=== PATIENT | female | born 1955 | race Caucasian/White ===

== ENCOUNTER 2018-10-18 08:33 | Observation (INO) | payer OTHER, SELFPAY ==
[2018-10-18] VITALS (19 sets, daily range): BP systolic 98–147; BP diastolic 70–82; PULSE 28–92; RESP 12–22; TEMP 36.4–36.7; O2SAT 95–100; BMI 22.3; BMI 22.9; BMI 23.0
--- NOTE | 2018-10-18 08:33 | EKG12_ITS ---
Test Reason : REPEAT Blood Pressure : / mmHG Vent. Rate : 082 BPM Atrial Rate : 082 BPM P-R Int : 156 ms QRS Dur : 086 ms QT Int : 406 ms P-R-T Axes : 076 -63 141 degrees QTc Int : 474 ms Normal sinus rhythm Left anterior fascicular block ST & T wave abnormality, consider inferolateral ischemia Prolonged QT Abnormal ECG Confirmed by EVY VERDUGO MD ([id number]), art editor STACI CORTEZ ([id number] on 10/23/2018 4:23:38 PM Referred By: TRISTAN Confirmed By:EVY VERDUGO MD
--- NOTE | 2018-10-18 08:35 | ED.VIS.GEN ---
History of Present Illness Chief Complaint: Chest Pain Informant: Patient Onset: Today - Awakened from sleep at 0100 Context: Sudden Onset Timing: Intermittent Quality: Tight pressure Location: Midsternal Current Severity: Moderate Maximum Severity: Severe Worsened by: Nothing Relieved by: Nothing Associated Symptoms: Diaphoresis with one episode, shortness of breath and nausea Narrative: Patient is a 63-year-old woman with no significant past medical history and no past surgical history who presents because she was wake from sleep with mid sternal chest tightness and pressure without radiation associated with nausea and dyspnea. One episode was associated with diaphoresis. She does not take aspirin on a routine basis. She denies black, maroon or blood in her stool. She denies food intolerance. There is no family history of coronary disease or cholelithiasis. She has no history of hiatal hernia or reflux. There is no history of PE or DVT and she has no risk factors. Denies leg pain, swelling discoloration. Prior similar symptoms: No Recent Illness/Hospitalization: No - Past Medical History (1) No significant past medical history Status: Acute Past Medical History - Allergies and Home Meds Allergies/Adverse Reactions: Allergies No Known Allergies Allergy (Verified 10/18/18 08:40) Primary Care Physician: Sunni Allen MD [STAFF PHYSICIAN] - Past Medical History: None Surgical History: no surgical history Lives: Spouse/ Significant Other Smoking Status: Never smoker Alcohol: None - Complaint Review of Systems General: Denies: Chills, Fever, Sweats, Weight loss Eyes: Denies: Visual changes - bilaterally, Blurred Vision - bilaterally, Diplopia ENT: Denies: Rhinorrhea, Sore throat Cardiovascular: Reports: Chest pain Respiratory: Reports: Dyspnea. Denies: Cough, Dyspnea on exertion, Orthopnea, Paroxysmal nocturnal dyspnea Gastrointestinal: Reports: Abdominal pain - Patient reports discomfort in the epigastric area as well., Nausea. Denies: Vomiting, Diarrhea, Constipation, Melena, Hematochezia Genitourinary: Denies: Dysuria, Hematuria, Frequency Musculoskeletal: Denies: Myalgias, Arthralgias, Neck pain, Back pain, Swelling, Extremity Pain, -, - Skin: Denies: Rash, Wounds Neurological: Denies: Headache, Weakness, Numbness Hematologic: Denies: Easy bruising, Easy bleeding - She reports epigastric pain as well. Allergy: Denies: Uticaria Physical Exam Inital Vital Signs reviewed: Yes General: Well nourished, Well developed, - - Patient does not appear comfortable. Respiratory rate is slightly increased. Head: Normocephalic, Atraumatic Eyes: Perrl, EOMI. Negative for: Pale conjunctiva, Scleral icterus, - ENT: Moist mucous membranes, No rhinorrhea Neck: Supple, Nontender, No lymphadenopathy, No JVD, - Cardiovascular: Regular rate, Regular rhythm, No murmurs, Normal S1, Normal S2 Respiratory: No distress, CTA bilaterally, Chest nontender Abdomen: Soft, Nondistended, Normal bowel sounds, No masses, Tender, Hypoactive bowel sounds. Negative for: Ventral hernia, Umbilical hernia, Rovsig's sign, King's sign Rectal: Deferred Back: Nontender, Normal Inspection Extremities: Nontender, No edema, - - There is no asymmetry, swelling, discoloration, leg vein distention, palpable cords or tenderness along the distribution of the deep venous system. Skin: Normal color, No rash. Negative for: Cyanosis, Jaundice Neurological: Alert, Oriented x3, Cranial nerves II-XII grossly intact, Normal Strength, Normal Sensation, Normal Gait Psychological: Normal affect, Normal Mood Diagnostic/Tx/Re-eval Chest X-Ray - ED: 1 View, Read by ED Physician, Normal, Heart, Lungs, Mediastinum, Bony Structures, No Acute Disease, - - There are no prior x-rays for comparison. 10/18/18 08:45 Chest 1 View (Portable) [RAD] Stat Laboratory Results 10/18/18 10/18/18 08:46 08:46 WBC 7.0 RBC 5.10 Hgb 15.5 H Hct 45.1 MCV 88.4 MCH 30.4 MCHC 34.4 RDW 12.7 RDW Differential 41.0 Plt Count 248 MPV 8.7 Immature Gran % (Auto) 0.300 Neut % (Auto) 88.2 H Lymph % (Auto) 9.4 L [place] % (Auto) 2.1 Eos % (Auto) 0.0 Baso % (Auto) 0.0 Absolute Neuts (auto) 6.2 Absolute Lymphs (auto) 0.66 L Total Counted Not Reportable Sodium 136 Potassium 3.8 Chloride 103 Carbon Dioxide 28.0 Anion Gap 5 BUN 22 H Creatinine 0.74 Estim Creat Clear Calc 71.84 Est GFR (MDRD) Af Amer 103 Est GFR (MDRD) Non-Af 85 BUN/Creatinine Ratio 29.9 H Glucose 142 H Calcium 9.2 Troponin I < 0.015 - Rhythm Strip Rhythm Strip: Sinus Rhythm Rate: 74 Ectopy: None - EKG Initial EKG Interpretation: Sinus Rhythm - Ventricular rate 78. [place] interval normal. QS duration 88 ms. QT interval is normal. [place] to left and there is evidence of a left anterior fascicular block. There is artifact noted in V4. Follow-up EKG Interpretation: Sinus Rhythm - Ventricular rate is 82. There is a left anterior fascicular block. There are new lateral ischemic changes V4 through V6. - Medical Decision Making Patient presents with midsternal chest discomfort without radiation and associated symptoms. Patient has a positive Burroughs sign. She does not appear comfortable. Need to evaluate for cardiac versus noncardiac etiology. EKG appropriate blood work was ordered. Because she describes as pressure sensation with diaphoresis she will receive aspirin and sublingual nitro since she is presently having tightness/pressure in her chest. Patient complaining of significant nausea. 4 mg of Zofran was ordered. I was asked to see patient because she does not look well. She is pale. Monitor reveals bradycardia. There is no sniffing a change in blood pressure. There is a decrease from 140-130 systolic. Obtain a repeat EKG. There are ST segment changes no on the monitor which may or may not indicate ischemia. Repeat EKG reveals a sinus rhythm rate of 82 with left anterior fascicular block. T waves are flipped and lead V4 through V6 which is new. Dr. Pittman who is on-call for cardiology was paged. Case was discussed Dr. Lopez. He was informed of EKG changes. He will see patient in the ER. She is pain-free he requested nitro drip, 180 mg of Brilinta and 4000 units of heparin. Troponin is pending. Hospitalist has been paged for admission. She will require admission to ICU. - Critical Care Time Critical care time (excluding procedures): 30-74 minutes, Discussing w/Patient &/or Family/Inside Sales Administrator, Discussing w/Consultants, Arranging Admission or Transfer ED Disposition - Plan for ED Patient: Disposition: Acute Care Hospital [facility] Diagnosis: Angina pectoris, unstable Referrals: Sunni Allen MD [STAFF PHYSICIAN] -
--- NOTE | 2018-10-18 08:39 | ED.DCSUM_ITS ---
History of Present Illness Chief Complaint: Chest Pain Informant: Patient Onset: Today - Awakened from sleep at 0100 Context: Sudden Onset Timing: Intermittent Quality: Tight pressure Location: Midsternal Current Severity: Moderate Maximum Severity: Severe Worsened by: Nothing Relieved by: Nothing Associated Symptoms: Diaphoresis with one episode, shortness of breath and nausea Narrative: Patient is a 63-year-old woman with no significant past medical history and no past surgical history who presents because she was wake from sleep with mid sternal chest tightness and pressure without radiation associated with nausea and dyspnea. One episode was associated with diaphoresis. She does not take aspirin on a routine basis. She denies black, maroon or blood in her stool. She denies food intolerance. There is no family history of coronary disease or cholelithiasis. She has no history of hiatal hernia or reflux. There is no history of PE or DVT and she has no risk factors. Denies leg pain, swelling discoloration. Prior similar symptoms: No Recent Illness/Hospitalization: No - Past Medical History (1) No significant past medical history Status: Acute Past Medical History - Allergies and Home Meds Allergies/Adverse Reactions: Allergies No Known Allergies Allergy (Verified 10/18/18 08:40) Primary Care Physician: Sunni Allen MD [STAFF PHYSICIAN] - Past Medical History: None Surgical History: no surgical history Lives: Spouse/ Significant Other Smoking Status: Never smoker Alcohol: None - Complaint Review of Systems General: Denies: Chills, Fever, Sweats, Weight loss Eyes: Denies: Visual changes - bilaterally, Blurred Vision - bilaterally, Diplopia ENT: Denies: Rhinorrhea, Sore throat Cardiovascular: Reports: Chest pain Respiratory: Reports: Dyspnea. Denies: Cough, Dyspnea on exertion, Orthopnea, Paroxysmal nocturnal dyspnea Gastrointestinal: Reports: Abdominal pain - Patient reports discomfort in the epigastric area as well., Nausea. Denies: Vomiting, Diarrhea, Constipation, Melena, Hematochezia Genitourinary: Denies: Dysuria, Hematuria, Frequency Musculoskeletal: Denies: Myalgias, Arthralgias, Neck pain, Back pain, Swelling, Extremity Pain, -, - Skin: Denies: Rash, Wounds Neurological: Denies: Headache, Weakness, Numbness Hematologic: Denies: Easy bruising, Easy bleeding - She reports epigastric pain as well. Allergy: Denies: Uticaria Physical Exam Inital Vital Signs reviewed: Yes General: Well nourished, Well developed, - - Patient does not appear comfortable. Respiratory rate is slightly increased. Head: Normocephalic, Atraumatic Eyes: Perrl, EOMI. Negative for: Pale conjunctiva, Scleral icterus, - ENT: Moist mucous membranes, No rhinorrhea Neck: Supple, Nontender, No lymphadenopathy, No JVD, - Cardiovascular: Regular rate, Regular rhythm, No murmurs, Normal S1, Normal S2 Respiratory: No distress, CTA bilaterally, Chest nontender Abdomen: Soft, Nondistended, Normal bowel sounds, No masses, Tender, Hypoactive bowel sounds. Negative for: Ventral hernia, Umbilical hernia, Rovsig's sign, King's sign Rectal: Deferred Back: Nontender, Normal Inspection Extremities: Nontender, No edema, - - There is no asymmetry, swelling, discoloration, leg vein distention, palpable cords or tenderness along the distribution of the deep venous system. Skin: Normal color, No rash. Negative for: Cyanosis, Jaundice Neurological: Alert, Oriented x3, Cranial nerves II-XII grossly intact, Normal Strength, Normal Sensation, Normal Gait Psychological: Normal affect, Normal Mood Diagnostic/Tx/Re-eval Chest X-Ray - ED: 1 View, Read by ED Physician, Normal, Heart, Lungs, Mediastinum, Bony Structures, No Acute Disease, - - There are no prior x-rays for comparison. 10/18/18 08:45 Chest 1 View (Portable) [RAD] Stat Laboratory Results 10/18/18 10/18/18 08:46 08:46 WBC 7.0 RBC 5.10 Hgb 15.5 H Hct 45.1 MCV 88.4 MCH 30.4 MCHC 34.4 RDW 12.7 RDW Differential 41.0 Plt Count 248 MPV 8.7 Immature Gran % (Auto) 0.300 Neut % (Auto) 88.2 H Lymph % (Auto) 9.4 L [place] % (Auto) 2.1 Eos % (Auto) 0.0 Baso % (Auto) 0.0 Absolute Neuts (auto) 6.2 Absolute Lymphs (auto) 0.66 L Total Counted Not Reportable Sodium 136 Potassium 3.8 Chloride 103 Carbon Dioxide 28.0 Anion Gap 5 BUN 22 H Creatinine 0.74 Estim Creat Clear Calc 71.84 Est GFR (MDRD) Af Amer 103 Est GFR (MDRD) Non-Af 85 BUN/Creatinine Ratio 29.9 H Glucose 142 H Calcium 9.2 Troponin I < 0.015 - Rhythm Strip Rhythm Strip: Sinus Rhythm Rate: 74 Ectopy: None - EKG Initial EKG Interpretation: Sinus Rhythm - Ventricular rate 78. [place] interval normal. QS duration 88 ms. QT interval is normal. [place] to left and there is evidence of a left anterior fascicular block. There is artifact noted in V4. Follow-up EKG Interpretation: Sinus Rhythm - Ventricular rate is 82. There is a left anterior fascicular block. There are new lateral ischemic changes V4 through V6. - Medical Decision Making Patient presents with midsternal chest discomfort without radiation and associated symptoms. Patient has a positive Burroughs sign. She does not appear comfortable. Need to evaluate for cardiac versus noncardiac etiology. EKG appropriate blood work was ordered. Because she describes as pressure sensation with diaphoresis she will receive aspirin and sublingual nitro since she is presently having tightness/pressure in her chest. Patient complaining of significant nausea. 4 mg of Zofran was ordered. I was a sked to see patient because she does not look well. She is pale. Monitor reveals bradycardia. There is no sniffing a change in blood pressure. There is a decrease from 140-130 systolic. Obtain a repeat EKG. There are ST segment changes no on the monitor which may or may not indicate ischemia. Repeat EKG reveals a sinus rhythm rate of 82 with left anterior fascicular block. T waves are flipped and lead V4 through V6 which is new. Dr. Pittman who is on-call for cardiology was paged. Case was discussed Dr. Lopez. He was informed of EKG changes. He will see patient in the ER. She is pain-free he requested nitro drip, 180 mg of Brilinta and 4000 units of heparin. Troponin is pending. Hospitalist has been paged for admission. She will require admission to ICU. - Critical Care Time Critical care time (excluding procedures): 30-74 minutes, Discussing w/Patient &/or Family/Office Technology Instructor, Discussing w/Consultants, Arranging Admission or Transfer ED Disposition - Plan for ED Patient: Disposition: Acute Care Hospital [facility] Diagnosis: Angina pectoris, unstable Referrals: Sunni Allen MD [STAFF PHYSICIAN] -
--- NOTE | 2018-10-18 08:45 | RAD_ITS ---
STUDY: X-RAY CHEST REASON FOR EXAM: Female, 63 years old. Chest pain. TECHNIQUE: Single AP portable view of the chest. COMPARISON: None. FINDINGS: EKG electrodes are seen. Hyperinflation. Scattered calcified granulomas. There is no demonstrated pleural abnormality. Normal size heart. Normal mediastinum and neal. Normal visualized pulmonary arteries. Normal visualized aortic arch and descending thoracic aorta. There is a mild dextroscoliosis of the thoracic spine. Normal visualized ribs, clavicles, and shoulders. There is no demonstrated abnormality of the visualized soft tissue structures of the upper abdomen. RAD/Chest 1 View (Portable) IMPRESSION: Hyperinflation. Electronically Signed: Ton Urbano, at 9:16 EDT , Service support ,
[2018-10-18 08:56] LABS: Absolute Lymphocyte Count 0.66 X10^3/ul (0.83-4.51); Absolute Neutrophil Count 6.2 X10^3/uL (2.0-7.7); Hematocrit 45.1 % (37-47); Hemoglobin 15.5 g/dl (12.0-15.0); Lymphocyte # 0.66 X10^3/ul (4.0); Lymphocyte % 9.4 % (19-41); Mean Corp Hgb Conc 34.4 g/gl (32-36); Mean Corpuscular Hgb 30.4 pg (27.0-32.0); Mean Corpuscular Volume 88.4 fL (81-99); Mean Platelet Vol. 8.7 fl (6.2-12.0); Monocyte# 0.15 X10^3/uL; Monocyte% 2.1 % (0-10); Neutrophil # 6.19 X10^3/uL (2.7-7.7); Neutrophil % 88.2 % (47-70); Platelet Count 248 K/mm3 (150-450); RBC Distribution Width CV 12.7 % (11.6-14.6)
[2018-10-18 08:58] LABS: POSITIVE COUNT NO; POSITIVE DIFFERENTIAL NO; POSITIVE MORPHOLOGY NO
[2018-10-18] MEDS: Ondansetron 4 MG/2 ML Vial IV ×3 (09:06→17:57)
--- NOTE | 2018-10-18 09:06 | NURSING ---
DR VERDUGO PAGED
[2018-10-18] MEDS: 0.9% Normal Saline 1,000 ML 150 ML IV ×2 (09:09→12:20)
[2018-10-18] MEDS: Aspirin 81 MG TAB.CHEW 324 MG PO (09:10)
[2018-10-18 09:11] LABS: Anion Gap 5 (5-15); BUN 22 mg/dL (7-18); BUN/Creat Ratio 29.9 RATIO (10-20); Calcium,Total 9.2 mg/dL (8.5-10.1); Chloride 103 mmol/L (98-107); Creatinine, Serum 0.74 mg/dL (0.55-1.02); EST Glomerular Filtration Rate 85 mL/min (>60); Est Glom Filt Rate - Afr Amer 103 mL/min (>60); Estimated Creatinine Clearance 71.84 ml/min; Glucose 142 mg/dL (74-106); Potassium 3.8 mmol/L (3.5-5.1); Sodium Level 136 mmol/L (136-145)
--- NOTE | 2018-10-18 09:14 | NURSING ---
DR GRACE IN [facility]
--- NOTE | 2018-10-18 09:16 | EKG12_ITS ---
Test Reason : CP Blood Pressure : / mmHG Vent. Rate : 078 BPM Atrial Rate : 078 BPM P-R Int : 138 ms QRS Dur : 088 ms QT Int : 398 ms P-R-T Axes : 038 -63 075 degrees QTc Int : 453 ms Normal sinus rhythm Left anterior fascicular block Nonspecific ST and T wave abnormality Abnormal ECG Confirmed by LUCINA STEINER, EVY ([id number]), editor city STACI CORTEZ ([id number]) on 10/23/2018 4:23:57 PM Referred By: TRISTAN Confirmed By:EVY VERDUGO MD
[2018-10-18] MEDS: Heparin 10,000 UNITS/10 ML Vial 4000 UNITS IV (09:18)
[2018-10-18 09:19] LABS: Lipase 138 U/L (73-393)
--- NOTE | 2018-10-18 09:22 | NURSING ---
ICU KITTOE UNSTABLE ANGINA
[2018-10-18 09:24] LABS: AST(SGOT) 22 U/L (15-37); Alanine Aminotransfer ALT/SGPT 30 U/L (13-56); Albumin, Serum 4.3 g/dL (3.2-5.0); Alkaline Phosphatase 84 U/L (45-117); Bilirubin, Direct 0.13 mg/dL (0.00-0.30); Globulin 3.8 g/dL (2.2-4.2); Protein, Total 8.1 g/dL (6.4-8.2)
--- NOTE | 2018-10-18 09:24 | HP.PCM_ITS ---
Problem List (1) Chest pain Status: Acute (2) Angina pectoris, unstable Status: Ruled-out (3) History of left heart catheterization Status: Chronic Comment: Non obstructive coronary arteries; Normal LV size, wall motion,and systolic function; Perserved Left Ventricular systolic function with normal EDP; LVEF: by LV gram 65 % per [facility] @ [facility] 10/18/2018 (4) No significant past medical history Status: Acute History of Present Illness Date of Admission: 10/18/18 Chief Complaint: Chest discomfort The patient is a 63 year old F-year-old lady in relatively good health who presented with chest discomfort. Patient symptoms started a day prior to coming in pain was located in the retrosternal region associated with nausea. Patient presented to the emergency department. In the ED patient was assessed to have dynamic EKG changes cardiology was therefore consulted patient underwent left heart catheterization which failed to demonstrate any obstructive lesion and subsequently admitted to monitored bed for noncardiac workup of her chest discomfort Past Medical History Past Medical History (Chronic Problems): Chronic Problems History of left heart catheterization (Chronic 10/18/18) Non obstructive coronary arteries; Normal LV size, wall motion,and systolic function; Perserved Left Ventricular systolic function with normal EDP; LVEF: by LV gram 65 % per [facility] @ [facility] 10/18/2018 Allergies No Known Allergies Allergy (Verified 10/18/18 08:40) Home Medications: Ambulatory Orders Medication Instructions Recorded Cholecalciferol (Vitamin D3) 2,000 unit PO DAILY 10/18/18 [Vitamin D3] Magnesium 250 mg PO DAILY 10/18/18 Multivitamins,Therapeutic 1 tablet PO DAILY 10/18/18 [Multivitamin] [place]-3 Fatty Acids [Fish Oil] 500 mg PO DAILY 10/18/18 Surgical History: no surgical history Lives: Spouse/ Significant Other Smoking Status: Never smoker Alcohol: None - Complaint - *Family History Paternal History Items: - - Parkinson's Review of Systems Constitutional: Denies: Anorexia, Chills, Fever, Night Sweats, Weight Change HEENT: Denies: Head Aches, Sinus Congestion, Sinus Drainage Cardiovascular: Reports: Chest Pain. Denies: Orthopnea, Palpitations, Paroxysmal Noc. Dyspnea Respiratory: Denies: Cough, Shortness of breath at rest, Shortness of breath upon exertion, Sputum production Gastrointestinal: Reports: Nausea. Denies: Abdominal Pain, Hematemesis, Hematochezia, Melena, Vomiting Genitourinary: Denies: Dysuria, Frequency, Hematuria, Urgency Musculoskeletal: Denies: Joint Pain, Joint Tenderness Skin: Denies: Rash Neurological: Denies: Focal weakness, Numbness, Tingling Psychiatric: Denies: Homicidal Ideations, Suicidal Ideations Hematologic/ Lymphatic: Denies: Easy Bruising, Easy Bleeding VTE Information - Inpt Only VTE Present on Admission: No VTE Mechan Device Prophylaxis: Knee High AKBAR Hose, None VTE Pharm Prophylaxis ordered?: No Reason prophylaxis not ordered:: Treatment Not Indicated Patient Problems: Active and Suspected Problems Chest pain (Acute) Objective: GENERAL: cooperative HEENT: Atraumatic; moist oral mucosa EYES; Anicteric, Normal Conjunctiva NECK; supple, normal thyroid, no distended JVD. RESPIRATORY: Diminished to auscultation bilaterally, CARDIOVASCULAR: Regular S1 S2, GI: soft, non-tender, normoactive bowel sounds, : No Renal angle tenderness; EXTREMITIES: No edema, no clubbing, MUSCULOSKELETAL: No Joint Tenderness; NEURO: Awake; no lateralizing signs. SKIN: No Rash PSYCH; Normal affect - Physical Exam Vital Signs Temp Pulse Resp BP Pulse Ox 98.1 F 77 22 H 144/80 H 99 10/18/18 08:33 10/18/18 08:48 10/18/18 08:33 10/18/18 08:48 10/18/18 08:43 Oxygen Flow Rate (L/min) 2 Oxygen Delivery Method Nasal Cannula Weight: 60.781 kg Body Mass Index (BMI) 22.3 Laboratory Tests Past 24 Hrs 10/18/18 10/18/18 10/18/18 08:46 08:46 08:46 WBC 7.0 RBC 5.10 Hgb 15.5 H Hct 45.1 MCV 88.4 MCH 30.4 MCHC 34.4 RDW 12.7 RDW Differential 41.0 Plt Count 248 MPV 8.7 Immature Gran % (Auto) 0.300 Neut % (Auto) 88.2 H Lymph % (Auto) 9.4 L [place] % (Auto) 2.1 Eos % (Auto) 0.0 Baso % (Auto) 0.0 Absolute Neuts (auto) 6.2 Absolute Lymphs (auto) 0.66 L Total Counted Not Reportable Sodium 136 Potassium 3.8 Chloride 103 Carbon Dioxide 28.0 Anion Gap 5 BUN 22 H Creatinine 0.74 Estim Creat Clear Calc 71.84 Est GFR (MDRD) Af Amer 103 Est GFR (MDRD) Non-Af 85 BUN/Creatinine Ratio 29.9 H Glucose 142 H Calcium 9.2 Total Bilirubin 0.50 Direct Bilirubin 0.13 AST 22 ALT 30 Alkaline Phosphatase 84 Troponin I < 0.015 Total Protein 8.1 Albumin 4.3 Globulin 3.8 Lipase 10/18/18 08:46 WBC RBC Hgb Hct MCV MCH MCHC RDW RDW Differential Plt Count MPV Immature Gran % (Auto) Neut % (Auto) Lymph % (Auto) [place] % (Auto) Eos % (Auto) Baso % (Auto) Absolute Neuts (auto) Absolute Lymphs (auto) Total Counted Sodium Potassium Chloride Carbon Dioxide Anion Gap BUN Creatinine Estim Creat Clear Calc Est GFR (MDRD) Af Amer Est GFR (MDRD) Non-Af BUN/Creatinine Ratio Glucose Calcium Total Bilirubin Direct Bilirubin AST ALT Alkaline Phosphatase Troponin I Total Protein Albumin Globulin Lipase 138 Assessment/Plan All Active Problems Chest pain (Acute) No significant past medical history (Acute) Angina pectoris, unstable (Ruled-out) Patient is a 63-year-old lady presented with chest discomfort 1. Chest discomfort: Suspected to be secondary to gallbladder disease patient underwent emergency left heart catheterization by Dr. Lopez findings included Non obstructive coronary arteries; Normal LV size, wall motion,and systolic function; Perserved Left Ventricular systolic function with normal EDP; LVEF: by LV gram 65 % . Patient admitted to the progressive care unit postprocedure ordered gallbladder ultrasound to rule out gallbladder disease patient was also placed on PPI 2. DVT prophylaxis low risk did encourage early ambulation Code Visit OBSV E&M: 72369 Initial observation care L3
--- NOTE | 2018-10-18 09:39 | NURSING ---
[employer]
--- NOTE | 2018-10-18 10:06 | EKG12_ITS ---
Test Reason : CP REPEAT #2 Blood Pressure : / mmHG Vent. Rate : 090 BPM Atrial Rate : 090 BPM P-R Int : 154 ms QRS Dur : 084 ms QT Int : 370 ms P-R-T Axes : 073 -63 187 degrees QTc Int : 452 ms Normal sinus rhythm Left anterior fascicular block ST & T wave abnormality, consider lateral ischemia Abnormal ECG Confirmed by TEE GRACE ([id number]), acquisition editor STACI CORTEZ ([id number]) on 10/23/2018 4:38:51 PM Referred By: TRISTAN Confirmed By:TEE GRACE
[2018-10-18] MEDS: Nitroglycerin Infusion 250 ML 3 MG CONT INF (10:30)
--- NOTE | 2018-10-18 11:09 | ED.RN ---
PT ARRIVES WITH CHEST TIGHTNESS AND N/V SINCE 0100. PT PLACED ON MONITOR, EKG PERFORMED, IV INITIATED, AND ONE TABLET NITRO GIVEN PER ORDER. ASA HELD PENDING ADMINISTRATION OF ZOFRAN FOR ACUTE NAUSEA. WHILE AWAITING ORDER FOR ZOFRAN, PT HAD EPISODE OF EMESIS WHICH RESULTED IN VAGAL RESPONSE AND PT HAD LOC FOR APPROXIMATELY 30 SECONDS. UPON AWAKENING, PT HR WAS ELEVATED AND HEART RHYTHM SHOWED CHANGES PER MONITOR. DR. HUDSON INFORMED AND REPEAT EKG WAS DONE. EKG CONFIRMED CHANGES. IT WAS RECOMMENDED TO PT AND SPOUSE AT THAT TIME THAT PT SHOULD BE REFERRED TO CARDIOLOGY FOR CARDIAC CATH PROCEDURE. DR. GRACE TO ED TO SEE PT AND EVALUATE NECESSITY OF CARDIAC CATH. DR. GRACE DISCUSSED OPTIONS AND RECOMMENDATION WITH PT AND SPOUSE WITH THE RECOMMENDATION THAT PT SHOULD GO TO [facility] FOR R/O PROCEDURE. PT SPOUSE BECAME AGITATED AND QUESTIONED NECESSITY FOR PROCEDURE CITING CONCERNS OF COST AND REQUESTED THAT CONCERNS FOR GALL BLADDER BE ADDRESSED PRIOR TO PURSUING CARDIAC INTERVENTION. DR. GRACE ADDRESSED THIS REQUEST STRESSING THAT CONCERNS FOR CARDIAC EVENT WOULD PROHIBIT GENERAL SURGERY FROM PERFORMING ANY PROCEDURES UNTIL CARDIAC COMPLICATIONS WERE RULED OUT. PT SPOUSE BECAME MORE AGITATED AND VERBALLY ABUSIVE STATING THAT DR. GRACE DIDN'T CARE ABOUT COST OF PROCEDURES AND JUST WANTED TO BULLY US INTO DOING WHAT YOU WANT. DR. GRACE ASSURED PT SPOUSE THAT EVERY EFFORT WAS BEING TAKEN TO PROVIDE EXCELLENT CARE FOR HIS AND THAT THIS IS THE RECOMMENDATION. PT AGREED TO RECOMMENDED PLAN OF CARE, HOWEVER WAVERED IN RESPONSE TO SPOUSES AGITATION. PT SPOUSE AND DR. GRACE HAD VERBAL DISAGREEMENT ABOUT THE PLAN OF CARE AND DR. GRACE LEFT THE ED. PT SPOUSE CONTINUED TO AGITATED AND BECAME UPSET ABOUT WHETHER OR NOT PROCEDURE WOULD BE COVERED BY INSURANCE. SOCIAL WORK WAS NOT YET ON HAND TO CONFER WITH PT AND SPOUSE, SO REGISTRATION ENTERED ROOM TO ATTEMPT TO ANSWER ANY QUESTIONS THAT SPOUSE HAD. SPOUSE BECAME VERBALLY ABUSIVE WITH SHOVELER. DR. HUDSON ENTERED ROOM AGAIN TO ASSURE PT SPOUSE THAT PROCEDURE WAS NECESSARY AND THAT IT WOULD BE COVERED UNDER INSURANCE AN EMERGENT EVENT. NURSES FROM THE [facility] ARRIVED TO ED TO TRANSPORT PT TO [facility]PC, HOWEVER PT SPOUSE REFUSED UNTIL HE HAD A CONFIRMATION THAT INSURANCE WOULD COVER PROCEDURE AND WOULD NOT ALLOW PT TO GO STATING I WOULD RATHER THAN HAVE A LARGE BILL. PT SPOUSE BECAME VERBALLY ABUSIVE TOWARD DR. HUDSON WELL DR. HUDSON CONTINUED TO ASSURE PT SPOUSE THAT PROCEDURE WAS NECESSARY AND WOULD BE COVERED UNDER INSURANCE AND SPOUSE EVENTUALLY RELENTED, STATED FINE, JUST TAKE HER AND ALLOWED PT TO BE TAKEN TO [facility] FOR PROCEDURE.
[2018-10-18 11:26] LABS: ACT Activated Clotting Time 158 sec (74-137)
--- NOTE | 2018-10-18 11:28 | CL.D_ITS ---
Patient Name: ISELA VILLANUEVA Study Date: 10/18/2018 Performing: Carrillo Lopez MD Ht: 65 inches 165 cm : 1955 Wt: 134.7 lbs 61 kg Age: 63 Gender: female BSA: 1.67 PROCEDURE(S) PERFORMED JP32-XIR/COR/LV CLINICAL PROFILE AND INDICATIONS Indications: ACS <= 24 hrs, Suspected CAD, Pre-Operative Evaluation Heart Failure: None Stress/Imaging Stress/Image Study Performed: No Angina Classification Anginal Classification w/in 2 Weeks: CCS IV CAD Presentations: Unstable angina. Other: Dynamic ECG changes CONCLUSIONS Non obstructive coronary arteries Normal LV size, wall motion,and systolic function Perserved Left Ventricular systolic function with normal EDP LVEF: by LV gram 65 % RECOMMENDATIONS Risk factor modification D/c NSAIDS, D/c Caffeine, Start PPI, Gall bladder u/s. Manual sheath removal as pt is too thin for closure device. Pt's referred to medical records for request for cath film; still cath pictures given as a co urtesy. Statin therapy for mild non obstructive CAD; repeat FLP in 6 weeks. Findings of cath report and recommendations thoroughly d/w pt and ; all questions answered. D/ w Dr Owens. DESCRIPTION OF PROCEDURE The patient arrived to the procedure lab. The risks and benefits of the procedure as well as a full d escription of our services here and current unavailability of surgical backup were fully explained to the patient and/or their significant other prior to the catheterization. The Timeout was completed, verifying the correct patient and procedure. The patient's procedural site was prepped and draped in the usual fashion. Local anesthetic was given subcutaneously to right groin region with Lidocaine 2%. Using a modified Seldinger technique, arterial access was obtained via the right femoral artery, a 4 Fr sheath was inserted Left Coronary Artery selective angiography was performed in multiple views us ing a 4 Fr. JL5 catheter. Right Coronary Artery selective angiography was then performed in multiple views using a 4 Fr. 3DRC catheter. Left Ventriculography was performed in RAINEY projection using a 4 Fr . Pigtail catheter. LV to AO pullback pressures were then recorded.The arterial sheath was pulled and manual compression applied until hemostasis is achieved. CORONARY ANGIOGRAPHY DOMINANCE: Co- Dominant LEFT HEART ASSESSMENT Left Ventricular Ejection Fraction: by LV Gram 65 % Normal LV wall motion Normal Left Ventricular systolic function Normal Left Ventricular End Diastolic Pressure LVEDP: 8 mmHg LEFT ANTERIOR DECENDING ARTERY: MID LAD: Mild luminal irregularities less than 30% CIRCUMFLEX ARTERY: Angiographically normal RIGHT CORONARY ARTERY: Angiographically normal COMPLICATIONS No Complications PROCEDURE MEDICATIONS Oxygen: 2 L/min via nasal cannula Nitro glycerin 25mg / 250ml D5W @ 5 mcg/min IV on arrival 10/18/2018 10:31:01 SUMMARY OF HEMODYNAMIC DATA Time AIR REST ECG 10:27:27 AO 107/66 (85) SA 10:56:12 LV 134/-23, 8 11:01:51 LV 135/-24, 6 11:01:57 LVp 121/-17, 6 11:02:13 AOp 133/64 (96) 11:02:18 Signed By Carrillo Lopez MD On 10/18/2018 11:27:31 AM Carrillo Lopez MD
--- NOTE | 2018-10-18 11:37 | ECHOD_ITS ---
Reason For Study: CHEST PAIN Procedure This was a 2D Doppler, Color Flow transthoracic echocardiogram. Exam performed portable in patient room. Left Ventricle Normal size and thickness. The estimated ejection fraction is 65 %. Normal diastology for age. No regional wall motion abnormalities noted. Right Ventricle Normal size and thickness. Normal systolic function. Atria Normal left atrium. Normal right atrium. Normal atrial septum. Mitral Valve The mitral valve is structurally normal. No prolapse or stenosis seen. Trivial eccentric mitral valve insufficiency. Tricuspid Valve Normal tricuspid valve. Mild to moderate (1-2+) tricuspid valve insufficiency. Right ventricular systolic pressure estimated to be 31 mmHg. Aortic Valve Normal aortic valve. Trisinus/trileaflet aortic valve. Pulmonic Valve Normal pulmonic valve. Great Vessels Normal aortic root. Normal arch. Normal inferior vena cava. Inferior vena cava collapse with sniff. Pericardium/Pleural No pericardial effusion. MMode/2D Measurements & Calculations LVIDd: 4.1 cm IVSd: 0.83 cm Ao root diam: 2.9 cm LVIDs: 2.7 cm LVPWd: 0.90 cm RVDd: 3.2 cm FS: 35.4 % LAV(MOD-bp): 34.4 ml LA A4 area: 14.4 cm2 LA dimension(2D): 3.1 cm LAV(MOD-bp) Indexed: 20.6 ml/m2 LAV(MOD-sp2): 26.3 ml LAV(MOD-sp4): 35.9 ml RA A4 area: 13.6 cm2 Time Measurements MV dec time: 0.21 sec Doppler Measurements & Calculations MV E max rosendo: 73.1 cm/sec Lat Peak E' Rosendo: 11.8 cm/sec Med Peak E' Rosendo: 7.5 cm/sec MV A max rosendo: 60.7 cm/sec E/E' lat: 6.2 E/E' med: 9.8 MV E/A: 1.2 Ao V2 max: 115.6 cm/sec LV V1 max: 78.1 cm/sec PA V2 max: 85.4 cm/sec Ao max P.3 mmHg LV V1 max P.4 mmHg PI end-d rosendo: 84.7 cm/sec TR max rosendo: 249.1 cm/sec TR max P.9 mmHg Interpretation Summary The estimated ejection fraction is 65 %. Normal diastology for age. Mild to moderate (1-2+) tricuspid valve insufficiency. Right ventricular systolic pressure estimated to be 31 mmHg. There is no comparison study available. Ordering Physician: Elvis Lazar Performed By: Kayleigh Patten RDCS, RVT
--- NOTE | 2018-10-18 11:37 | US_ITS ---
STUDY: ABDOMINAL ULTRASOUND - RIGHT UPPER QUADRANT REASON FOR VISIT: Female, 63 years old. Midline abdominal pain TECHNIQUE: Ultrasound evaluation of the right upper quadrant was performed with real-time and static cross-scale imaging. TECHNICAL QUALITY: Adequate. COMPARISON: CTA chest 10/18/2018. FINDINGS: Liver: The liver measures 16.5 cm. There is normal echogenicity of the liver. The bile ducts are within normal limits. There is hepatic color flow. The direction of portal flow is hepatopetal. There is no demonstrated mass lesion. Gallbladder: There is distention of the gallbladder. The gallbladder wall measures 2 mm. There is a negative sonographic King's sign. There is no pericholecystic fluid. There are no gallstones. Common Bile Duct (C.B.D.): The common bile duct measures 3 mm. Pancreas: Normal size of the head, body and tail of the pancreas. There is normal echogenicity of the pancreas. There is no demonstrated pancreatic mass or cyst. Right Kidney: Normal size of the right kidney. The right kidney measures 11.5 cm. Normal renal cortex. The right cortex measures 1.6 cm. There is no demonstrated renal mass or cyst. There is no right hydronephrosis. US/Abdomen Limited IMPRESSION: Mild distention of the gallbladder , No gallstones. The hypodense lesions seen on CT within the liver are not visualized on ultrasound. This may be due to small size. The lesions could still represent cysts or hemangiomas however pathologic liver lesions cannot be excluded. Multiphase MRI abdomen with and without contrast is recommended to further evaluate Electronically Signed: Carlos Koo, at 22:31 EDT Tel , Service support ,
--- NOTE | 2018-10-18 14:42 | CT_ITS ---
STUDY: CTA CHEST REASON FOR EXAM: Female, 63 years old. Chest pain RADIATION DOSAGE (If Supplied By Facility): CTDIvol = ( 5.44 ) mGy, DLP = ( 164.17 ) mGycm TECHNIQUE: The examination was performed with the intravenous administration of 75 IV Isovue 370. Post-processing of the angiographic images was performed, with multiplanar reformation and 3D reconstruction. Individualized dose optimization techniques were used for this CT. COMPARISON: None. FINDINGS: Normal enhancement of the main pulmonary artery and right and left pulmonary arteries. Normal enhancement of the bilateral peripheral pulmonary arteries. There is no demonstrated pulmonary embolism. Normal thoracic aorta and visualized great vessels. There is no demonstrated aortic dissection. Normal heart and pericardium. Normal mediastinum. Normal hilar regions. Normal visualized trachea and bronchi. The lungs are well expanded. There is scattered mild bibasilar linear subsegmental atelectasis. There is a small to moderate pericardial effusion most significant along the base of the heart maximum AP diameter 1.5 cm Normal pleura. Normal chest wall structures. Normal osseous structures. Normal visualized upper abdomen. There are multiple less than 1 cm hypodensities within the liver. There is mild bilateral low-density nodular enlargement of the adrenal glands which are incompletely included on the [id number]. CT/CTA Chest W/WO Contrast IMPRESSION: Normal CTA chest examination, without a demonstrated pulmonary embolism or arterial dissection. Mild bibasilar linear subsegmental atelectasis small to moderate pericardial effusion most significant along the base of the heart maximum AP diameter 1.5 cm, further evaluation with cardiac echo could be performed. Hypodensities within the liver some of which are too small to characterize most likely cysts or hemangiomas Likely bilateral adrenal hyperplasia Electronically Signed: Carlos Koo, at 17:00 EDT Tel , Service support ,
[2018-10-18] MEDS: proMETHazine 25 MG/ML Syringe 12.5 MG IM ×2 (14:50→21:54)
[2018-10-18 14:58] LABS: D-Dimer Quantitative (DVT/PE) 0.31 FEU/ug/m (0.27-0.49)
[2018-10-18] MEDS: Ketorolac 15 MG/ML Vial IV (17:57)
--- NOTE | 2018-10-18 18:27 | EKG12_ITS ---
Test Reason : POSSIBLE BLOCK Blood Pressure : / mmHG Vent. Rate : 082 BPM Atrial Rate : 082 BPM P-R Int : 170 ms QRS Dur : 090 ms QT Int : 352 ms P-R-T Axes : 065 -58 -16 degrees QTc Int : 411 ms Normal sinus rhythm Left anterior fascicular block Nonspecific T wave abnormality Abnormal ECG When compared with ECG of 18-OCT-2018 10:09, MANUAL COMPARISON REQUIRED, DATA IS UNCONFIRMED Confirmed by LUCINA STEINER, EVY ([id number]), industrial editor STACI CORTEZ ([id number]) on 10/23/2018 5:14:49 PM Referred By: DR HYLTON Confirmed By:EVY VERDUGO MD
[2018-10-18 20:43] LABS: Erythrocyte Sedimentation Rate 6 mm/hr (0-30)
[2018-10-18] MEDS: Atorvastatin Calcium 10 MG Tablet PO (21:45)
[2018-10-18] MEDS: 0.9% NaCl Peripheral Flush Adult/Peds IV ×3 (21:54→21:59)
[2018-10-19] MEDS: Ketorolac 15 MG/ML Vial IV ×2 (00:12→06:11)
[2018-10-19] MEDS: 0.9% NaCl Peripheral Flush Adult/Peds IV ×3 (00:12→06:13)
[2018-10-19 03:01] VITALS: PULSE 79
[2018-10-19 03:25] VITALS: BP 143/76; PULSE 84; RESP 20; TEMP 37.2; O2SAT 98
[2018-10-19 06:17] LABS: Hematocrit 41.7 % (37-47); Hemoglobin 14.1 g/dl (12.0-15.0); Mean Corp Hgb Conc 33.8 g/gl (32-36); Mean Corpuscular Hgb 29.6 pg (27.0-32.0); Mean Corpuscular Volume 87.6 fL (81-99); Mean Platelet Vol. 8.9 fl (6.2-12.0); Platelet Count 268 K/mm3 (150-450); RBC Distribution Width CV 13.1 % (11.6-14.6); RBC Distribution Width SD 41.1 fl (35.1-43.9); Red Blood Count 4.76 M/mm3 (4.2-5.4); White Blood Count 7.5 K/mm3 (4.4-11.0)
[2018-10-19 06:21] VITALS: TEMP 37.2
[2018-10-19 06:23] LABS: Scan Indicated on CBC? Y/N NO
[2018-10-19 06:46] LABS: Anion Gap 10 (5-15); BUN 17 mg/dL (7-18); BUN/Creat Ratio 29.2 RATIO (10-20); Calcium,Total 8.5 mg/dL (8.5-10.1); Chloride 107 mmol/L (98-107); Creatinine, Serum 0.58 mg/dL (0.55-1.02); EST Glomerular Filtration Rate 112 mL/min (>60); Est Glom Filt Rate - Afr Amer 135 mL/min (>60); Estimated Creatinine Clearance 91.66 ml/min; Glucose 130 mg/dL (74-106); Magnesium 2.2 mg/dL (1.6-2.6); Potassium 3.3 mmol/L (3.5-5.1); Sodium Level 141 mmol/L (136-145)
[2018-10-19 07:29] VITALS: PULSE 87; O2SAT 95
--- NOTE | 2018-10-19 08:36 | CASEMGMT ---
As per admitting utility system repairer, pt has LW/POA but is not able to bring in the documents. Pt's POA is José Torres. BUSHRA Ramesh
[2018-10-19 09:25] VITALS: BP 143/78; PULSE 77; RESP 16; TEMP 36.8; O2SAT 100
[2018-10-19] MEDS: Ondansetron 4 MG/2 ML Vial IV (09:33)
[2018-10-19] MEDS: Pantoprazole Sodium 20 MG Tablet PO (09:37)
--- NOTE | 2018-10-19 11:28 | PCM.PN.CARD ---
Subjectve: Patient seen this morning. She had an episode of what appears to be nausea induced high-grade AV block yesterday but no syncope. Patient has had on and off atypical nonexertional chest pain which does not appear to be recumbent in nature, or get worse with inspiration. CT scan of her chest and abdomen yesterday demonstrated possible posterior pericardial effusion however echocardiogram done today shows no evidence of pericardial effusion whatsoever. In addition she has evidence of possible lesions in her liver, which will require additional intervention. Her sed rate is negative. Objective: Vital Signs Temp Pulse Resp BP Pulse Ox 98.3 F 77 16 143/78 H 100 10/19/18 09:25 10/19/18 09:25 10/19/18 09:25 10/19/18 09:25 10/19/18 09:25 Oxygen Flow Rate (L/min) 2 Oxygen Delivery Method Room Air Weight: 136 lb 7.458 oz Body Mass Index (BMI) 22.9 Intake and Output for Last 24 Hours 10/17/18 10/18/18 10/19/18 23:59 23:59 23:59 Intake Total 200 / 200 50 / 50 Output Total 50 / 50 400 / 400 Balance 150 / 150 -350 / -350 General: Awake, Alert, Oriented x 3 HEENT: PERRL, EOMI, Sclera Non Icteric Neck: Supple, Good ROM, No Lymph Node Enlargement Lungs: Clear to auscultation Cardiovascular: Regular Rhythm, Normal S1, Normal S2, No Rubs, No Gallops Murmur Murmur: Grade 2/6, Holosystolic Vascular: No Carotid Bruits, Normal Femoral Pulses, Normal Radial Pulses, Normal Dorsalis Pedal Pulse, Normal Posterior Tibial Pulses Abdomen: Bowel Sounds Present, Soft, Non Tender, No HSM, No Organomegaly Extremities: No Cyanosis, No Clubbing, No edema Neurological: No Focal Motor or Sensory Deficit 10/18/18 08:46: D-Dimer Quant (PE/DVT) 0.31 10/18/18 12:08: Troponin I < 0.015 10/18/18 14:30: Troponin I < 0.015 10/19/18 05:50: WBC 7.5, RBC 4.76, Hgb 14.1, Hct 41.7, MCV 87.6, MCH 29.6, MCHC 33.8, RDW 13.1, RDW Differential 41.1, Plt Count 268, MPV 8.9 10/19/18 05:50: Sodium 141, Potassium 3.3 L, Chloride 107, Carbon Dioxide 24.0, Anion Gap 10, BUN 17, Creatinine 0.58, Est GFR (MDRD) Af Amer 135, Est GFR (MDRD) Non-Af 112, BUN/Creatinine Ratio 29.2 H, Glucose 130 H, Calcium 8.5, Magnesium 2.2 Rhythm: EKG: ECHO: Normal LV size and function, LVEF is 65-70%, RVSP of 31 mmHg, mild tricuspid regurgitation. No evidence of pericardial effusion. Stress Test: Cardiac Cath: PCI: CT Surgery: Holter monitor: EPS: PPM: CXR: Chest CT Scan: Medical Necessity - Tobacco Use Smoking Status: Never smoker Assessment/Plan #1. Chest pain: Patient compared to yesterday with substernal chest pain emanating from her midepigastric area with subsequent nausea and vomiting followed by what appears to be either high-grade AV block or bradycardia causing her to temporarily pass out. After her syncopal event she had dynamic anterior EKG changes superimposed on chest pain which was relieved with sublingual nitroglycerin. She underwent urgent left heart catheterization was demonstrated minimal nonobstructive coronary disease of her LAD and diagonal branches but no evidence of overt disease which required intervention. In addition a sed rate was ordered to evaluate for possible pericarditis which was negative. Although a CT scan suggested posterior pericardial effusion, and echocardiogram this morning demonstrated normal LV size and function, no evidence of pericardial effusion. Would not recommend treating for pericarditis at this time. Ultrasound of her gallbladder demonstrated gallbladder distention, but no stones or wall thickening. CT scan of her abdomen demonstrated multiple lesions in her liver, and I recommend an MRI for better evaluation. The patient was started on PPI therapy and encouraged to discontinue her NSAID therapy as she may have gastritis as a cause of her epigastric pain. I do not believe her epigastric pain or chest pain or cardiac related at this time. The patient had no evidence of coronary vasospasm induced cardiomyopathy on catheterization yesterday. 2. Coronary artery disease: Patient had minimal nonobstructive coronary artery disease and would recommend LDL reduction for primary prevention going forward. Patient was started on low-dose Lipitor. Repeat lipid profile in 6 weeks time. 3. Discussed with Dr. Stephens. Thank you very much for the opportunity to participate in the cardiac care of your patient. Will sign off. Please call with any questions. Above findings except for echocardiogram as it did not yet been completed were fully described to the patient this morning, and all questions answered. Code Visit Inpatient E&M: 86566 Subs Hosp L2
--- NOTE | 2018-10-19 11:39 | DCINST_ITS ---
- Discharge Diagnoses Current Active Problems: Current Active and Chronic Problems Non-cardiac Chest pain (Acute) History of left heart catheterization (Chronic 10/18/18) Non obstructive coronary arteries; Normal LV size, wall motion,and systolic function; Perserved Left Ventricular systolic function with normal EDP; LVEF: by LV gram 65 % per [facility] @ [facility] 10/18/2018 You will use the following diet at home:: No restrictions Discharge Activity: Return to Normal Activity Call your doctor if you observe: Shortness of breath, Dizziness, Fainting spells, Chest pain Allergies/Adverse Reactions: Allergies No Known Allergies Allergy (Verified 10/18/18 08:40) Medications to take at Discharge Cholecalciferol (Vitamin D3) [Vitamin D3] 2,000 unit PO DAILY 10/18/18 Magnesium 250 mg PO DAILY 10/18/18 Multivitamins,Therapeutic [Multivitamin] 1 tablet PO DAILY 10/18/18 [place]-3 Fatty Acids [Fish Oil] 500 mg PO DAILY 10/18/18 Atorvastatin Calcium [Lipitor] 10 mg PO QHS #30 tablet 10/19/18 Pantoprazole Sodium [Protonix] 20 mg PO DAILY #30 tablet 10/19/18 The following prescriptions were given: Atorvastatin Calcium [Lipitor] 10 mg PO QHS #30 tablet Pantoprazole Sodium [Protonix] 20 mg PO DAILY #30 tablet Primary Care Physician: Sunni Allen MD [STAFF PHYSICIAN] - Please follow up with your Primary Care Physician in: 1 Week Test Results: Test results from this visit will be discussed in further detail at your follow- up appointment, if applicable. Proposed Discharge Date: 10/19/18
--- NOTE | 2018-10-19 13:22 | PCM.DC.SUM ---
Discharge Date and Diagnosis Date of Admission: 10/18/18 Date of Discharge: 10/19/18 - Primary Discharge Diagnosis Active and Suspected Problems 1. Noncardiac chest pain 2. Transient high-grade AV block/bradycardia, resolved 3. Minimal nonobstructive coronary artery disease 4. Presumed gastritis - Secondary Discharge Diagnosis Chronic Problems History of left heart catheterization (Chronic 10/18/18) Non obstructive coronary arteries; Normal LV size, wall motion,and systolic function; Perserved Left Ventricular systolic function with normal EDP; LVEF: by LV gram 65 % per DJN @ [facility] 10/18/2018 Hospital Course and Treatment Imaging Results: Diagnostic Data Chest X-Ray 10/18/18 08:45 IMPRESSION: Hyperinflation. Electronically Signed: Ton Urbano, at 9:16 EDT , Service support , Abdomen Ultrasound 10/18/18 11:37 IMPRESSION: Mild distention of the gallbladder , No gallstones. The hypodense lesions seen on CT within the liver are not visualized on ultrasound. This may be due to small size. The lesions could still represent cysts or hemangiomas however pathologic liver lesions cannot be excluded. Multiphase MRI abdomen with and without contrast is recommended to further evaluate Electronically Signed: Carlos Koo, at 22:31 EDT Tel , Service support , Chest CTA 10/18/18 14:42 IMPRESSION: Normal CTA chest examination, without a demonstrated pulmonary embolism or arterial dissection. Mild bibasilar linear subsegmental atelectasis small to moderate pericardial effusion most significant along the base of the heart maximum AP diameter 1.5 cm, further evaluation with cardiac echo could be performed. Hypodensities within the liver some of which are too small to characterize most likely cysts or hemangiomas Likely bilateral adrenal hyperplasia Electronically Signed: Carlos Koo at 17:00 EDT Tel , Service support , Dr. Lopez- Cardiology Operations: None Procedures: 2-D Echocardiogram, Cardiac catheterization Summary of Care Provided: The patient is a 63 year old F admitted 10/18/2018 due to chest discomfort. 1. Noncardiac chest pain-cardiology consulted. Troponin negative. Patient with nausea induced high-grade AV block on admission without syncope. Resolved without further recurrence. CT of chest showed possible posterior pericardial effusion however echocardiogram showed no evidence of pericardial effusion. Sed rate normal. Patient underwent cardiac catheterization which showed minimal nonobstructive coronary arteries. Cardiac etiology ruled out. Suspect possible gastritis. Initiated on PPI. Follow-up with primary care physician in 1 week. CTA showed hypodensities within the liver which were too small to characterize. Discussed with radiology who feels these are cysts and do not require further evaluation. Abdominal ultrasound showed mild distention of the gallbladder, no gallstones. Hypodense lesion seen on CT were not visualized on abdominal ultrasound. LFTs within normal limits. 2. Transient high-grade AV block/bradycardia, resolved-cardiology suspects nausea induced. No further other arrhythmias or abnormalities on telemetry. 3. Minimal nonobstructive coronary artery disease-patient reports normal lipid panel as outpatient. Discontinue statin which was initiated during admission. 4. Possible gastritis-started on PPI during admission as noted above. Patient seen and examined prior to discharge. Physical assessment as noted below. Patient is stable for discharge with follow up recommendations as noted above. This patient was seen by DHARMESH Mcguire under the supervision of Dr. Stephens. - Physical Exam Vital Signs Temp Pulse Resp BP Pulse Ox 98.3 F 77 16 143/78 H 100 10/19/18 09:25 10/19/18 09:25 10/19/18 09:25 10/19/18 09:25 10/19/18 09:25 Oxygen Flow Rate (L/min) 2 Oxygen Delivery Method Room Air Weight: 136 lb 7.458 oz Body Mass Index (BMI) 22.9 Intake and Output for Last 24 Hours 10/17/18 10/18/18 10/19/18 23:59 23:59 23:59 Intake Total 200 / 200 50 / 50 Output Total 50 / 50 400 / 400 Balance 150 / 150 -350 / -350 Laboratory Tests Past 24 Hrs 10/18/18 10/18/18 10/18/18 08:46 08:46 14:30 WBC RBC Hgb Hct MCV MCH MCHC RDW RDW Differential Plt Count MPV ESR 6 D-Dimer Quant (PE/DVT) 0.31 Sodium Potassium Chloride Carbon Dioxide Anion Gap BUN Creatinine Estim Creat Clear Calc Est GFR (MDRD) Af Amer Est GFR (MDRD) Non-Af BUN/Creatinine Ratio Glucose Calcium Magnesium Troponin I < 0.015 C-React Prot Ext Range 10/18/18 10/19/18 10/19/18 14:30 05:50 05:50 WBC 7.5 RBC 4.76 Hgb 14.1 Hct 41.7 MCV 87.6 MCH 29.6 MCHC 33.8 RDW 13.1 RDW Differential 41.1 Plt Count 268 MPV 8.9 ESR D-Dimer Quant (PE/DVT) Sodium 141 Potassium 3.3 L Chloride 107 Carbon Dioxide 24.0 Anion Gap 10 BUN 17 Creatinine 0.58 Estim Creat Clear Calc 91.66 Est GFR (MDRD) Af Amer 135 Est GFR (MDRD) Non-Af 112 BUN/Creatinine Ratio 29.2 H Glucose 130 H Calcium 8.5 Magnesium 2.2 Troponin I C-React Prot Ext Range 3.10 H Discharge Diet: No Restrictions Discharge Activity: Return to Normal Activity Call your doctor if you observe: Shortness of breath, Dizziness, Fainting spells, Chest pain Home Medications: Medications to take at Discharge Cholecalciferol (Vitamin D3) [Vitamin D3] 2,000 unit PO DAILY 10/18/18 Magnesium 250 mg PO DAILY 10/18/18 Multivitamins,Therapeutic [Multivitamin] 1 tablet PO DAILY 10/18/18 [place]-3 Fatty Acids [Fish Oil] 500 mg PO DAILY 10/18/18 Pantoprazole Sodium [Protonix] 20 mg PO DAILY #30 tablet 10/19/18 Following Prescrptions Were Given to Patient: Pantoprazole Sodium [Protonix] 20 mg PO DAILY #30 tablet Primary Care Physician: Sunni Allen MD [STAFF PHYSICIAN] - Please follow up with your Primary Care Physician in: 1 Week Disposition: Home Minutes spent on discharge:: 35 Patient Condition:: Stable Medical Necessity - Tobacco Use Smoking Status: Never smoker Meaningful Use Info Meaningful Use Diagnoses (Choose all that apply): None applicable
--- NOTE | 2018-10-19 13:30 | DS.PCM_ITS ---
Discharge Date and Diagnosis Date of Admission: 10/18/18 Date of Discharge: 10/19/18 - Primary Discharge Diagnosis Active and Suspected Problems 1. Noncardiac chest pain 2. Transient high-grade AV block/bradycardia, resolved 3. Minimal nonobstructive coronary artery disease 4. Presumed gastritis - Secondary Discharge Diagnosis Chronic Problems History of left heart catheterization (Chronic 10/18/18) Non obstructive coronary arteries; Normal LV size, wall motion,and systolic function; Perserved Left Ventricular systolic function with normal EDP; LVEF: by LV gram 65 % per DJN @ [facility] 10/18/2018 Hospital Course and Treatment Imaging Results: Diagnostic Data Chest X-Ray 10/18/18 08:45 IMPRESSION: Hyperinflation. Electronically Signed: Ton Urbano, at 9:16 EDT , Service support , Abdomen Ultrasound 10/18/18 11:37 IMPRESSION: Mild distention of the gallbladder , No gallstones. The hypodense lesions seen on CT within the liver are not visualized on ultrasound. This may be due to small size. The lesions could still represent cysts or hemangiomas however pathologic liver lesions cannot be excluded. Multiphase MRI abdomen with and without contrast is recommended to further evaluate Electronically Signed: Carlos Koo, at 22:31 EDT Tel , Service support , Chest CTA 10/18/18 14:42 IMPRESSION: Normal CTA chest examination, without a demonstrated pulmonary embolism or arterial dissection. Mild bibasilar linear subsegmental atelectasis small to moderate pericardial effusion most significant along the base of the heart maximum AP diameter 1.5 cm, further evaluation with cardiac echo could be performed. Hypodensities within the liver some of which are too small to characterize most likely cysts or hemangiomas Likely bilateral adrenal hyperplasia Electronically Signed: Carlos Koo at 17:00 EDT Tel , Service support , Dr. Lopez- Cardiology Operations: None Procedures: 2-D Echocardiogram, Cardiac catheterization Summary of Care Provided: The patient is a 63 year old F admitted 10/18/2018 due to chest discomfort. 1. Noncardiac chest pain-cardiology consulted. Troponin negative. Patient with nausea induced high-grade AV block on admission without syncope. Resolved without further recurrence. CT of chest showed possible posterior pericardial effusion however echocardiogram showed no evidence of pericardial effusion. Sed rate normal. Patient underwent cardiac catheterization which showed minimal nonobstructive coronary arteries. Cardiac etiology ruled out. Suspect possible gastritis. Initiated on PPI. Follow-up with primary care physician in 1 week. CTA showed hypodensities within the liver which were too small to characterize. Discussed with radiology who feels these are cysts and do not require further evaluation. Abdominal ultrasound showed mild distention of the gallbladder, no gallstones. Hypodense lesion seen on CT were not visualized on abdominal ultrasound. LFTs within normal limits. 2. Transient high-grade AV block/bradycardia, resolved-cardiology suspects nausea induced. No further other arrhythmias or abnormalities on telemetry. 3. Minimal nonobstructive coronary artery disease-patient reports normal lipid panel as outpatient. Discontinue statin which was initiated during admission. 4. Possible gastritis-started on PPI during admission as noted above. Patient seen and examined prior to discharge. Physical assessment as noted below. Patient is stable for discharge with follow up recommendations as noted above. This patient was seen by DHARMESH Mcguire under the supervision of Dr. Stephens. - Physical Exam Vital Signs Temp Pulse Resp BP Pulse Ox 98.3 F 77 16 143/78 H 100 10/19/18 09:25 10/19/18 09:25 10/19/18 09:25 10/19/18 09:25 10/19/18 09:25 Oxygen Flow Rate (L/min) 2 Oxygen Delivery Method Room Air Weight: 136 lb 7.458 oz Body Mass Index (BMI) 22.9 Intake and Output for Last 24 Hours 10/17/18 10/18/18 10/19/18 23:59 23:59 23:59 Intake Total 200 / 200 50 / 50 Output Total 50 / 50 400 / 400 Balance 150 / 150 -350 / -350 Laboratory Tests Past 24 Hrs 10/18/18 10/18/18 10/18/18 08:46 08:46 14:30 WBC RBC Hgb Hct MCV MCH MCHC RDW RDW Differential Plt Count MPV ESR 6 D-Dimer Quant (PE/DVT) 0.31 Sodium Potassium Chloride Carbon Dioxide Anion Gap BUN Creatinine Estim Creat Clear Calc Est GFR (MDRD) Af Amer Est GFR (MDRD) Non-Af BUN/Creatinine Ratio Glucose Calcium Magnesium Troponin I < 0.015 C-React Prot Ext Range 10/18/18 10/19/18 10/19/18 14:30 05:50 05:50 WBC 7.5 RBC 4.76 Hgb 14.1 Hct 41.7 MCV 87.6 MCH 29.6 MCHC 33.8 RDW 13.1 RDW Differential 41.1 Plt Count 268 MPV 8.9 ESR D-Dimer Quant (PE/DVT) Sodium 141 Potassium 3.3 L Chloride 107 Carbon Dioxide 24.0 Anion Gap 10 BUN 17 Creatinine 0.58 Estim Creat Clear Calc 91.66 Est GFR (MDRD) Af Amer 135 Est GFR (MDRD) Non-Af 112 BUN/Creatinine Ratio 29.2 H Glucose 130 H Calcium 8.5 Magnesium 2.2 Troponin I C-React Prot Ext Range 3.10 H Discharge Diet: No Restrictions Discharge Activity: Return to Normal Activity Call your doctor if you observe: Shortness of breath, Dizziness, Fainting spells, Chest pain Home Medications: Medications to take at Discharge Cholecalciferol (Vitamin D3) [Vitamin D3] 2,000 unit PO DAILY 10/18/18 Magnesium 250 mg PO DAILY 10/18/18 Multivitamins,Therapeutic [Multivitamin] 1 tablet PO DAILY 10/18/18 [place]-3 Fatty Acids [Fish Oil] 500 mg PO DAILY 10/18/18 Pantoprazole Sodium [Protonix] 20 mg PO DAILY #30 tablet 10/19/18 Following Prescrptions Were Given to Patient: Pantoprazole Sodium [Protonix] 20 mg PO DAILY #30 tablet Primary Care Physician: Sunni Allen MD [STAFF PHYSICIAN] - Please follow up with your Primary Care Physician in: 1 Week Disposition: Home Minutes spent on discharge:: 35 Patient Condition:: Stable Medical Necessity - Tobacco Use Smoking Status: Never smoker Meaningful Use Info Meaningful Use Diagnoses (Choose all that apply): None applicable
== END 2018-10-19 11:37 | disposition home or self-care (01) ==
LOC: ED 09:15 → PCU 09:38
PROVIDERS: Internal Medicine Cardiovascular Disease; Admitting Provider Internal Medicine; Emergency Provider Emergency Medicine; Visit Provider Internal Medicine
DX: R07.89 Other chest pain (principal); R06.02 Shortness of breath; R11.0 Nausea; I44.4 Left anterior fascicular block; I25.10 Atherosclerotic heart disease of native coronary artery without angina pectoris
CPT/HCPCS: 36415; 71045; 71275; 76705; 80048; 80076; 83690; 83735; 84484; 85025; 85027; 85347; 85379; 85652; 86140; 93005; 93306; 93458; 96361; 96372; 96374; 96375; 96376; 99218; 99283; J7030; Q9967; A4216; C1769; C1894; G0378; J2405

== ENCOUNTER → 2022-03-12 | Outpatient (CLI) | payer OTHER, SELFPAY ==
--- NOTE | 2022-03-11 | CYSPIN_PTH ---
PATIENT: ISELA VILLANUEVA LOC: [facility] U#:[id number] AGE/SX: 66/F ROOM: RE03/12/[address]: Dr. Lala Cotto MD : [id number] BED: DIS: 03/12/2022 SPEC #: [id number] RECD: 03/12/22 10:27 STATUS: ELISABETH AIDA #: [id number] GINNA: 03/11/22 00:[address]: Lala Cotto DEPT: CYTOLOGY RECD BY: Jasmin Peñaloza ENTERED: 03/12/22 11:27 SP TYPE: CYSPIN FL REN DR: No Primary Care Phys Tissues: A - Leg, NOS B - Leg, NOS Procedures: Special Stain Group II Cytospin Fluid Cytology Other HEADER OPERATION: Ultrasound-guided fine needle aspiration left lower extremity mass PRE-OP DIAGNOSIS: Left lower extremity mass TISSUE SUBMITTED: A ? Left leg mass FNA fluid, B - Left leg mass FNA x4 slides DIAGNOSIS CYTOLOGY A. Left leg mass fluid, fine needle aspiration (cytospin): Negative for malignant cells. See comment. B. Left leg mass, fine needle aspiration (smears): Negative for malignant cells. See comment. SJ:leroy 03/16/2022 COMMENT A & B. The specimens are paucicellular and consist only of a few red blood cells. Correlation with clinical findings and appropriate follow up are necessary. Incisional or excisional biopsy is suggested for definitive diagnosis of lesion if clinically indicated. CYTOLOGY STUDY Slides are reviewed. CYTOLOGY GROSS A - Received is 25 ml of clear colorless fluid labeled with the patient's name and and designated per the requisition as left leg mass. Submitted for cytology preparation. B - Received are four smears labeled with the patient's name and designated per the requisition as left leg mass. Submitted for staining. / leroy 03/12/2022 TC: Cannot code CPT: 72587 x2
== END | disposition home or self-care (01) ==
LOC: LABSPEC 10:32
PROVIDERS: Referring Provider Surgery; Visit Provider Surgery
DX: R22.42 Localized swelling, mass and lump, left lower limb (principal)
CPT/HCPCS: 88108; 88161; 88313

== ENCOUNTER → 2025-05-27 | Outpatient (CLI) | payer MEDICARE, OTHER, SELFPAY ==
--- NOTE | 2025-05-27 14:21 | STRESSREP ---
Stress Test Report Exercise stress test. 69-year-old lady with a history of chest pain. Stress protocol: Resting EKG demonstrates normal sinus rhythm with a rate of 83 bpm resting blood pressure is 142/84 mmHg. The patient exercised according to the regular [facility] protocol for a total duration of 7 minutes attaining a maximum heart rate of 160 bpm which was 104% of maximum predicted heart rate; the maximum workload was 10 metabolic equivalents. At rest there were no ST or T wave changes noted to suggest ischemia and at peak exercise upsloping ST changes only were noted which did not meet the criteria for ischemia. No clinical angina was noted the test was terminated due to the target heart rate being achieved/fatigue. The peak blood pressure was 154/86 mmHg. Rate-pressure product was 23,000. Conclusion: Stress test with no EKG criteria for ischemia at a high workload No arrhythmias noted
== END | disposition home or self-care (01) ==
PROVIDERS: PCP Internal Medicine; Referring Provider Internal Medicine; Visit Provider Internal Medicine
DX: R07.9 Chest pain, unspecified (principal)
CPT/HCPCS: 93017